=== PATIENT | female | born 1980 | race Caucasian/White ===

== ENCOUNTER 2019-03-01 15:59 | Emergency (ER) | payer OTHER ==
[~2019-03-01] VITALS: Ht 182.9 cm; Wt 97.5 kg
[2019-03-01] MEDS ORDERED: VITAMIN D1000 UNI1 PO (16:10)
[2019-03-01 18:00] VITALS: BP 101/60
== END 2019-03-01 18:00 | disposition home or self-care (01) ==
LOC: M.ERS 15:59
DX: S09.8XXA Other specified injuries of head, initial encounter (principal); M79.7 Fibromyalgia; M32.9 Systemic lupus erythematosus, unspecified; Z88.0 Allergy status to penicillin; Z88.2 Allergy status to sulfonamides; Z88.6 Allergy status to analgesic agent; Z90.710 Acquired absence of both cervix and uterus; Z98.890 Other specified postprocedural states; Z88.8 Allergy status to other drugs, medicaments and biological substances; Z90.49 Acquired absence of other specified parts of digestive tract; Z90.711 Acquired absence of uterus with remaining cervical stump; W22.8XXA Striking against or struck by other objects, initial encounter; Y92.89 Other specified places as the place of occurrence of the external cause; Y93.89 Activity, other specified; Y99.8 Other external cause status